=== PATIENT | male | born 1990 | race Caucasian/White ===

== ENCOUNTER 2018-06-20 02:16 | Emergency (ER) | payer BC ==
[2018-06-20 02:51] LABS: #Monocytes 0.5 thou/uL (0.11-0.59); #Neutrophils 2.7 thou/uL (1.40-6.50); %Basophils 0.5 % (0.0-1.0); %Eosinophils 0.7 % (0.0-10.0); %Monocytes 11.3 % (0.0-10.0); %Neutrophils 64.6 % (42.0-75.0); Hemoglobin 16.6 g/dL (14.0-18.0); Mean Corpuscular HGB CONC 34.1 g/dL (32.0-36.0); Mean Corpuscular Hemoglobin 30.6 pg (27.0-31.0); Mean Corpuscular Volume 89.9 fL (78.0-98.0); Mean Platelet Volume 7.8 fL (7.4-10.4); Platelet Count 168 thou/uL (130-400); RBC Distribution Width 11.5 % (11.5-14.5); Red Blood Cell (RBC) Count 5.41 mill/uL (4.70-6.10); White Blood Cell (WBC) Count 4.2 thou/uL (4.8-10.8)
[2018-06-20 03:10] LABS: ALT (SGPT) 18 U/L (8-55); AST (SGOT) 27 U/L (5-34); Albumin 4.3 g/dL (3.5-5.0); Alkaline Phosphatase 52 U/L (40-150); Anion Gap 13 mmol/L (10-20); BUN (Urea Nitrogen) 11 mg/dL (8.9-20.6); Bilirubin, Total 0.6 mg/dL (0.2-1.2); Calc. Creatinine Clearance 0 mL/min (70-130); Calcium 9.1 mg/dL (7.8-10.44); Carbon Dioxide 23 mmol/L (22-29); Chloride 102 mmol/L (98-107); Estimated GFR-MDRD 89; Globulin 2.8 g/dL (2.4-3.5); Glucose 120 mg/dL (70-105); Lipase 19 U/L (8-78); Potassium 3.4 mmol/L (3.5-5.1); Protein, Total 7.1 g/dL (6.0-8.3); Sodium 135 mmol/L (136-145)
== END 2018-06-20 03:55 | disposition home or self-care (01) ==
LOC: ERS 02:16
DX: E86.9 Volume depletion, unspecified (principal); R19.7 Diarrhea, unspecified
CPT/HCPCS: 80053; 82274; 83690; 85025; 87045; 87046; 87324; 87328; 87329; 87449; 87899; 96360

== ENCOUNTER 2018-07-27 17:11 | Emergency (ER) | payer BC ==
[2018-07-27] MEDS ORDERED: Lidocaine 1% w/Epinephrine 1:100K 20 ML VIAL ONE (18:11)
[2018-07-27] MEDS ORDERED: Adacel (T-DAP) 0.5 ML SYRINGE ONE (18:11)
[2018-07-27] MEDS ORDERED: Bacitracin Zinc 1 Packet ONE (19:18)
== END 2018-07-27 19:30 | disposition home or self-care (01) ==
LOC: ERS 17:11
DX: S81.812A Laceration without foreign body, left lower leg, initial encounter (principal); V09.9XXA Pedestrian injured in unspecified transport accident, initial encounter
CPT/HCPCS: 12004; 90471; 90715; J2001

== ENCOUNTER 2018-08-12 15:00 | Emergency (ER) | payer BC | END 2018-08-12 15:29 | disposition home or self-care (01) | LOC: ERS 15:00 | DX: S81.812D Laceration without foreign body, left lower leg, subsequent encounter (principal); K58.9 Irritable bowel syndrome, unspecified; X58.XXXD Exposure to other specified factors, subsequent encounter ==